=== PATIENT | female | born 2000 | race Caucasian/White ===

== ENCOUNTER → 2018-11-12 | Outpatient (CLI) | payer BC ==
[~2018-11-12] MED LIST: FAMO20TA PO; LO LTAB PO; OMEP-221 PO; SING10TA32 PO; xyzal PO
--- NOTE | 2018-11-12 19:31 | REP ---
REASON: GERD without esophagitis. 100.04 millicuries of technetium 99M sulfur colloid was cook bound on two scrambled eggs and given with 10 ounces of water orally. Dynamic imaging was obtained with gastric emptying calculation. The T-1/2 calculation was at 106 minutes with normal T-1/2 calculation at 90 minutes. 45% emptying was recorded at that time. IMPRESSION: Slightly delayed gastric emptying. Electronically Signed by Antoni Rodriguez DO 11/13/2018 11:57 A
== END ==
LOC: M RAD 12:16
PROVIDERS: ATTEND Internal Medicine Gastroenterology
DX: K21.9 Gastro-esophageal reflux disease without esophagitis (principal)
CPT/HCPCS: 78264; A9541

== ENCOUNTER 2018-11-26 10:49 | Day surgery (SDC) | payer BC ==
[~2018-11-26] VITALS: Ht 170.2 cm; Wt 61.7 kg
[~2018-11-26 10:49] MED LIST changes: +LIDOCAINE 2% INJ 100 MG/5 ML SDV (FOR ANES.) As Ordered ONE; +NS 1,000 ML IV ONE; +PROPOFOL 200 MG/20 ML VIAL As Ordered ONE
--- NOTE | 2018-11-26 11:39 | ROOR ---
Patient Name: Holley Culp Procedure Date: 11/26/2018 11:13 AM Date of : 2000 Age: 18 Room: [facility] Gender: Female Note Status: Finalized Procedure: Upper Endoscopy + Biopsies Indications: Heartburn, Exclusion of Alvarez's esophagus Providers: Anand Turner MD Referring MD: Anand Turner MD Requesting Provider: Medicines: Monitored Anesthesia Care Complications: No immediate complications. Procedure: Pre-Anesthesia Assessment: - The heart rate, respiratory rate, oxygen saturations, blood pressure, adequacy of pulmonary ventilation, and response to care were monitored throughout the procedure. The Endoscope was introduced through the mouth, and advanced to the second part of duodenum. The upper GI endoscopy was accomplished without difficulty. The patient tolerated the procedure well. Findings: The Z-line was variable and was found 38 cm from the incisors. Multiple biopsies were obtained with cold forceps for evaluation to rule out Alvarez's Esophagus randomly at the gastroesophageal junction. Mucosal changes were found in the mid esophagus. Biopsies were taken with a cold forceps for histology. A small hiatal hernia was present. No other significant abnormalities were identified in a careful examination of the stomach. Biopsies were taken with a cold forceps in the gastric antrum for Helicobacter pylori testing. The exam of the duodenum was otherwise normal. Impression: - Z-line variable, 38 cm from the incisors. - Esophageal mucosal changes suspicious for eosinophilic esophagitis. Biopsied. - Small hiatal hernia. - Multiple biopsies were obtained at the gastroesophageal junction. - Biopsies were taken with a cold forceps for Helicobacter pylori testing. - The examination was otherwise normal. Recommendation: - Patient has a contact number available for emergencies. The signs and symptoms of potential delayed complications were discussed with the patient. Return to normal activities tomorrow. Written discharge instructions were provided to the patient. - Resume previous diet. - Discharge patient to home. - Follow an antireflux regimen. - Continue present medications. - Await pathology results. - Telephone GI clinic for pathology results in 1 week. - The findings and recommendations were discussed with the patient's family. Anand Turner MD Anand Turner MD 11/26/2018 11:39:38 AM Electronically signed by Anand Turner MD Number of Addenda: 0 Note Initiated On: 11/26/2018 11:13 AM Estimated Blood Loss: Estimated blood loss: none.
[2018-11-26 12:21] VITALS: BP 144/79
== END 2018-11-26 12:25 | disposition home or self-care (01) ==
LOC: M OPP 10:49 → EDUNIT# 12:00 → M OPP 12:25
PROVIDERS: ATTEND Internal Medicine Gastroenterology
DX: K22.8 Other specified diseases of esophagus (principal); K44.9 Diaphragmatic hernia without obstruction or gangrene; K29.60 Other gastritis without bleeding; R12 Heartburn; Z88.0 Allergy status to penicillin